=== PATIENT | female | born 1955 | race Caucasian/White ===

== ENCOUNTER → 2017-07-14 | Outpatient (CLI) | payer OTHER | END | disposition home or self-care (01) | LOC: NUC 07:31 | DX: R94.4 Abnormal results of kidney function studies (principal) | CPT/HCPCS: 78707; A9562 ==

== ENCOUNTER 2017-07-21 17:34 | Emergency (ER) | payer OTHER ==
[~2017-07-21] VITALS: Ht 165.1 cm; Wt 79.0 kg
[2017-07-21 18:48] LABS: HEMATOCRIT 33.2 % (36.0-46.0); HEMOGLOBIN 10.6 G/DL (11.9-15.5); MCH 26.6 PG (29.0-34.0); MCHC 31.9 G/DL (30.0-36.0); MCV 83.4 FL (83-99); PLATELET COUNT 442 K/uL (156-360); RBC DIS.WIDTH-SD 42.7 % (39-53); RED BLOOD COUNT 3.98 M/uL (3.80-5.20); WHITE BLOOD COUNT 10.7 K/uL (4.1-10.2)
[2017-07-21 18:58] LABS: INTER. NORMALIZED RATIO 1.1
[2017-07-21 19:01] LABS: MAGNESIUM 1.9 mg/dL (1.3-2.7); PTT 33.4 SEC (25-37)
[2017-07-21 20:06] LABS: THYROTROPIN (TSH) 2.8 MIU/L (0.4-5.5)
[2017-07-21 20:16] LABS: APPEARANCE CLOUDY ((CLEAR)); BILIRUBIN NEGATIVE; BLOOD SMALL; COLOR YELLOW ((YELLOW)); GLUCOSE (STRIP) NEGATIVE; KETONES NEGATIVE; LEUKOCYTES LARGE; NITRITE NEGATIVE; PROTEIN (STRIP) 30; UROBILINOGEN 0.2 MG/DL (0.2-1.0)
[2017-07-21 20:35] LABS: RED BLOOD CELLS 0-5 /HPF (0-5); WHITE BLOOD CELLS TNTC /HPF (0-5)
[2017-07-21 20:36] LABS: BACTERIA 2+ /HPF; EPITHELIAL CELLS 2+ /HPF; MUCUS TRACE /LPF
[2017-07-21 20:59] VITALS: BP 128/85
== END 2017-07-21 21:01 | disposition home or self-care (01) ==
LOC: EME 17:34
PROVIDERS: Physician Assistant
DX: R79.89 Other specified abnormal findings of blood chemistry (principal); R00.0 Tachycardia, unspecified; M79.89 Other specified soft tissue disorders; R06.02 Shortness of breath; I10 Essential (primary) hypertension; K21.9 Gastro-esophageal reflux disease without esophagitis; Z87.891 Personal history of nicotine dependence
CPT/HCPCS: 71275; 81003; 83735; 84443; 85027; 85610; 85730; 93005; 93970; 99281; 99284; J7030

== ENCOUNTER 2017-08-20 22:07 | Inpatient (IN) | payer OTHER ==
[~2017-08-20] VITALS: Ht 165.1 cm; Wt 86.3 kg
[~2017-08-20 22:07] MED LIST: ADULT ASPIRIN R81 MG PO; AMOX TR-K CLV1 EAC4 PO; HYZAAR 100-11 TABLET PO; METFORMIN HCL1000 M3 PO; MYCOSTATIN15 GM PO; PROTONIX40 MG PO; TEMOVATE 0.05%30 GM TP; YUVAFEM10 MCG VG
[2017-08-21] MEDS ORDERED: METOPROLOL SUCC50 MG PO (05:50)
[2017-08-21 05:51] VITALS: BP 112/67
[2017-08-21] MEDS ORDERED: DOCUSATE SODIU100 MG PO (10:48)
[2017-08-21] MEDS ORDERED: ENDOCET 5-3251 EACH PO (10:48)
[2017-08-21 18:37] VITALS: BP 102/59
[2017-08-21 19:07] VITALS: BP 107/61
[2017-08-21 23:09] VITALS: BP 98/56
[2017-08-21 23:30] VITALS: BP 98/56
[2017-08-22] VITALS (10 sets, daily range): BP systolic 70–104; BP diastolic 42–60
[2017-08-22 07:23] LABS: HEMATOCRIT 25.2 % (36.0-46.0); MCHC 31.7 G/DL (30.0-36.0); MCV 81.8 FL (83-99); RBC DIS.WIDTH-SD 41.8 % (39-53); WHITE BLOOD COUNT 9.4 K/uL (4.1-10.2)
[2017-08-22 07:24] LABS: PLATELET COUNT 340 K/uL (156-360); RED BLOOD COUNT 3.08 M/uL (3.80-5.20)
[2017-08-22 08:08] LABS: CHLORIDE 101 MEQ/L (99-109); CREATININE 0.9 MG/DL (0.6-1.3); GFR ESTIMATE (CALCULATED) > 59 mL/min/; GLUCOSE 139 mg/dL (70-99); POTASSIUM 3.7 MEQ/L (3.7-5.4); SODIUM 139 MEQ/L (136-147); UREA NITROGEN (BUN) 11 mg/dL (9-23)
[2017-08-23] VITALS (25 sets, daily range): BP systolic 74–106; BP diastolic 43–68
[2017-08-23 03:34] LABS: HEMATOCRIT 26.4 % (36.0-46.0); HEMOGLOBIN 8.6 G/DL (11.9-15.5); MCHC 32.6 G/DL (30.0-36.0); PLATELET COUNT 302 K/uL (156-360); RBC DIS.WIDTH-CV 14.3 % (11.8-14.6); RBC DIS.WIDTH-SD 43.5 % (39-53); RED BLOOD COUNT 3.18 M/uL (3.80-5.20); WHITE BLOOD COUNT 13.9 K/uL (4.1-10.2)
[2017-08-23 03:42] LABS: ALBUMIN 2.9 g/dL (3.2-4.8)
[2017-08-23 03:43] LABS: CHLORIDE 99 mEq/L (99-109); POTASSIUM 4.1 mEq/L (3.7-5.4); SODIUM 133 mEq/L (136-147)
[2017-08-23 03:45] LABS: GLUCOSE 112 mg/dL (70-99); TOTAL PROTEIN 5.7 g/dL (6.4-8.3)
[2017-08-23 03:47] LABS: TOTAL BILIRUBIN 2.3 mg/dL (0.0-1.0)
[2017-08-23 03:48] LABS: ALKALINE PHOSPHATASE 67 IU/L (3-129)
[2017-08-23 03:49] LABS: CREATININE 1.2 mg/dL (0.6-1.3); GFR ESTIMATE (CALCULATED) 49 mL/min/
[2017-08-23 03:50] LABS: AST (GOT) 15 IU/L (2-34); UREA NITROGEN (BUN) 11 mg/dL (9-23)
[2017-08-23 03:52] LABS: ALT (GPT) 6 IU/L (3-49)
[2017-08-23 05:05] LABS: APPEARANCE SL.HAZY ((CLEAR)); BILIRUBIN NEGATIVE; BLOOD NEGATIVE; COLOR YELLOW ((YELLOW)); GLUCOSE (STRIP) NEGATIVE; KETONES NEGATIVE; LEUKOCYTES TRACE; NITRITE NEGATIVE; PROTEIN (STRIP) NEGATIVE; SPECIFIC GRAVITY 1.008 (1.000-1.030); UROBILINOGEN 0.2 MG/DL (0.2-1.0)
[2017-08-23 05:08] LABS: BACTERIA RARE /HPF; EPITHELIAL CELLS RARE /HPF; MUCUS TRACE /LPF
[2017-08-23 08:46] LABS: BASOPHIL (%) 0.3 % (0-1); EOSINOPHIL (%) 1.2 % (0-5); EOSINOPHIL COUNT 0.2 K/uL (0-0.3); HEMATOCRIT 27.5 % (36.0-46.0); HEMOGLOBIN 8.8 G/DL (11.9-15.5); IMMATURE GRANULOCYTE (%) 0.6 % (0.0-0.7); LYMPHOCYTE (%) 7.4 % (15-42); LYMPHOCYTE COUNT 0.9 K/uL (1.0-2.8); MCH 26.9 PG (29.0-34.0); MCV 84.1 FL (83-99); MONOCYTE (%) 5.4 % (3-12); MONOCYTE COUNT 0.7 K/uL (0-0.8); NEUTROPHIL (%) 85.1 % (45-76); NEUTROPHIL COUNT 10.5 K/uL (1.8-6.4); PLATELET COUNT 283 K/uL (156-360); RBC DIS.WIDTH-CV 14.5 % (11.8-14.6); RBC DIS.WIDTH-SD 44.6 % (39-53); RED BLOOD COUNT 3.27 M/uL (3.80-5.20); WHITE BLOOD COUNT 12.4 K/uL (4.1-10.2)
[2017-08-23 09:21] LABS: CHLORIDE 102 MEQ/L (99-109); GFR ESTIMATE (CALCULATED) > 59 mL/min/; GLUCOSE 126 mg/dL (70-99); POTASSIUM 3.5 MEQ/L (3.7-5.4); SODIUM 135 MEQ/L (136-147); UREA NITROGEN (BUN) 11 mg/dL (9-23)
[2017-08-23 20:46] LABS: HEMATOCRIT 26.2 % (36.0-46.0); HEMOGLOBIN 8.5 G/DL (11.9-15.5); MCH 26.9 PG (29.0-34.0); MCHC 32.4 G/DL (30.0-36.0); MCV 82.9 FL (83-99); PLATELET COUNT 304 K/uL (156-360); RBC DIS.WIDTH-CV 14.5 % (11.8-14.6); RBC DIS.WIDTH-SD 44.1 % (39-53); RED BLOOD COUNT 3.16 M/uL (3.80-5.20); WHITE BLOOD COUNT 12.4 K/uL (4.1-10.2)
[2017-08-24] VITALS (32 sets, daily range): BP systolic 72–115; BP diastolic 39–90
[2017-08-24 01:17] LABS: BASOPHIL (%) 0.2 % (0-1); EOSINOPHIL (%) 1.5 % (0-5); EOSINOPHIL COUNT 0.2 K/uL (0-0.3); HEMATOCRIT 26.1 % (36.0-46.0); HEMOGLOBIN 8.5 G/DL (11.9-15.5); IMMATURE GRANULOCYTE (%) 0.7 % (0.0-0.7); LYMPHOCYTE (%) 9.9 % (15-42); LYMPHOCYTE COUNT 1.2 K/uL (1.0-2.8); MCH 27.2 PG (29.0-34.0); MCHC 32.6 G/DL (30.0-36.0); MCV 83.4 FL (83-99); MONOCYTE (%) 4.4 % (3-12); MONOCYTE COUNT 0.5 K/uL (0-0.8); NEUTROPHIL (%) 83.3 % (45-76); NEUTROPHIL COUNT 10.1 K/uL (1.8-6.4); PLATELET COUNT 312 K/uL (156-360); RBC DIS.WIDTH-CV 14.5 % (11.8-14.6); RBC DIS.WIDTH-SD 44.3 % (39-53); RED BLOOD COUNT 3.13 M/uL (3.80-5.20); WHITE BLOOD COUNT 12.2 K/uL (4.1-10.2)
[2017-08-24 01:27] LABS: CHLORIDE 102 mEq/L (99-109); POTASSIUM 3.5 mEq/L (3.7-5.4); SODIUM 135 mEq/L (136-147)
[2017-08-24 01:29] LABS: GLUCOSE 101 mg/dL (70-99)
[2017-08-24 01:33] LABS: GFR ESTIMATE (CALCULATED) > 59 mL/min/; PHOSPHORUS 2.9 mg/dL (2.5-4.9)
[2017-08-24 01:34] LABS: UREA NITROGEN (BUN) 12 mg/dL (9-23)
[2017-08-24 01:40] LABS: MAGNESIUM 0.9 mg/dL (1.3-2.7)
[2017-08-24 08:29] LABS: HEMATOCRIT 26.3 % (36.0-46.0); HEMOGLOBIN 8.3 G/DL (11.9-15.5); MCH 26.7 PG (29.0-34.0); MCHC 31.6 G/DL (30.0-36.0); MCV 84.6 FL (83-99); PLATELET COUNT 306 K/uL (156-360); RBC DIS.WIDTH-CV 14.6 % (11.8-14.6); RBC DIS.WIDTH-SD 45.3 % (39-53); RED BLOOD COUNT 3.11 M/uL (3.80-5.20); WHITE BLOOD COUNT 11.7 K/uL (4.1-10.2)
[2017-08-24 08:51] LABS: CHLORIDE 103 MEQ/L (99-109); CREATININE 0.9 MG/DL (0.6-1.3); GFR ESTIMATE (CALCULATED) > 59 mL/min/; GLUCOSE 99 mg/dL (70-99); MAGNESIUM 1.9 mg/dl (1.3-2.7); POTASSIUM 3.5 MEQ/L (3.7-5.4); SODIUM 134 MEQ/L (136-147); UREA NITROGEN (BUN) 10 mg/dL (9-23)
[2017-08-24 14:28] LABS: BASOPHIL (%) 0.2 % (0-1); EOSINOPHIL (%) 1.8 % (0-5); EOSINOPHIL COUNT 0.2 K/uL (0-0.3); HEMATOCRIT 26.4 % (36.0-46.0); HEMOGLOBIN 8.3 G/DL (11.9-15.5); IMMATURE GRANULOCYTE (%) 0.6 % (0.0-0.7); LYMPHOCYTE (%) 9.9 % (15-42); LYMPHOCYTE COUNT 0.9 K/uL (1.0-2.8); MCH 26.2 PG (29.0-34.0); MCHC 31.4 G/DL (30.0-36.0); MCV 83.3 FL (83-99); MONOCYTE COUNT 0.5 K/uL (0-0.8); NEUTROPHIL (%) 82.5 % (45-76); NEUTROPHIL COUNT 7.7 K/uL (1.8-6.4); PLATELET COUNT 298 K/uL (156-360); RBC DIS.WIDTH-CV 14.6 % (11.8-14.6); RBC DIS.WIDTH-SD 44.4 % (39-53); RED BLOOD COUNT 3.17 M/uL (3.80-5.20); WHITE BLOOD COUNT 9.3 K/uL (4.1-10.2)
[2017-08-24 14:51] LABS: CHLORIDE 103 MEQ/L (99-109); POTASSIUM 2.9 MEQ/L (3.7-5.4); SODIUM 135 MEQ/L (136-147)
[2017-08-24 14:58] LABS: CREATININE 0.9 MG/DL (0.6-1.3); GFR ESTIMATE (CALCULATED) > 59 mL/min/; GLUCOSE 126 mg/dL (70-99); UREA NITROGEN (BUN) 11 mg/dL (9-23)
[2017-08-24 15:00] LABS: HIGH-SENS C-REACTIVE PROTEIN > 8.00 MG/DL (0.02-0.20)
[2017-08-25] VITALS (33 sets, daily range): BP systolic 73–121; BP diastolic 45–85
[2017-08-25 06:37] LABS: BASOPHIL (%) 0.4 % (0-1); EOSINOPHIL (%) 5.1 % (0-5); EOSINOPHIL COUNT 0.6 K/uL (0-0.3); HEMATOCRIT 25.5 % (36.0-46.0); HEMOGLOBIN 8.1 G/DL (11.9-15.5); IMMATURE GRANULOCYTE (%) 0.4 % (0.0-0.7); LYMPHOCYTE (%) 12.3 % (15-42); LYMPHOCYTE COUNT 1.4 K/uL (1.0-2.8); MCH 26.9 PG (29.0-34.0); MCHC 31.8 G/DL (30.0-36.0); MCV 84.7 FL (83-99); MONOCYTE (%) 7.6 % (3-12); MONOCYTE COUNT 0.9 K/uL (0-0.8); NEUTROPHIL (%) 74.2 % (45-76); NEUTROPHIL COUNT 8.3 K/uL (1.8-6.4); RBC DIS.WIDTH-CV 14.8 % (11.8-14.6); RBC DIS.WIDTH-SD 45.8 % (39-53); RED BLOOD COUNT 3.01 M/uL (3.80-5.20); WHITE BLOOD COUNT 11.2 K/uL (4.1-10.2)
[2017-08-25 06:39] LABS: PLATELET COUNT 399 K/uL (156-360)
[2017-08-25 07:10] LABS: ALKALINE PHOSPHATASE 96 IU/L (3-129); ALT (GPT) 6 IU/L (3-49); AST (GOT) 10 IU/L (2-34); CHLORIDE 107 MEQ/L (99-109); CREATININE 0.9 MG/DL (0.6-1.3); GFR ESTIMATE (CALCULATED) > 59 mL/min/; GLUCOSE 109 mg/dL (70-99); MAGNESIUM 1.8 mg/dl (1.3-2.7); PHOSPHORUS 2.8 mg/dL (2.5-4.9); SODIUM 139 MEQ/L (136-147); TOTAL BILIRUBIN 0.7 MG/DL (0.0-1.0); TOTAL PROTEIN 4.3 G/DL (6.4-8.3); UREA NITROGEN (BUN) 8 mg/dL (9-23)
[2017-08-25 07:12] LABS: POTASSIUM 4.2 MEQ/L (3.7-5.4)
[2017-08-25 08:08] LABS: HIGH-SENS C-REACTIVE PROTEIN > 8.00 MG/DL (0.02-0.20)
[2017-08-25 10:41] LABS: INTER. NORMALIZED RATIO 1.4
[2017-08-25 10:43] LABS: PTT 35.9 SEC (25-37)
[2017-08-25 11:09] LABS: THYROTROPIN (TSH) 1.4 MIU/L (0.4-5.5)
[2017-08-26] VITALS (23 sets, daily range): BP systolic 94–145; BP diastolic 64–91
[2017-08-26 07:36] LABS: BASOPHIL (%) 0 % (0-1); EOSINOPHIL (%) 0 % (0-5); HEMATOCRIT 27.1 % (36.0-46.0); HEMOGLOBIN 8.6 G/DL (11.9-15.5); IMMATURE GRANULOCYTE (%) 0.7 % (0.0-0.7); LYMPHOCYTE (%) 10.7 % (15-42); LYMPHOCYTE COUNT 0.7 K/uL (1.0-2.8); MCH 26.5 PG (29.0-34.0); MCHC 31.7 G/DL (30.0-36.0); MCV 83.6 FL (83-99); MONOCYTE (%) 5.3 % (3-12); MONOCYTE COUNT 0.3 K/uL (0-0.8); NEUTROPHIL (%) 83.3 % (45-76); NEUTROPHIL COUNT 5.1 K/uL (1.8-6.4); PLATELET COUNT 331 K/uL (156-360); RBC DIS.WIDTH-CV 14.4 % (11.8-14.6); RBC DIS.WIDTH-SD 44.2 % (39-53); RED BLOOD COUNT 3.24 M/uL (3.80-5.20); WHITE BLOOD COUNT 6.1 K/uL (4.1-10.2)
[2017-08-26 07:59] LABS: ALBUMIN 2.3 G/DL (3.2-4.8); ALKALINE PHOSPHATASE 100 IU/L (3-129); ALT (GPT) 6 IU/L (3-49); AST (GOT) 10 IU/L (2-34); CHLORIDE 105 MEQ/L (99-109); CREATININE 0.9 MG/DL (0.6-1.3); GFR ESTIMATE (CALCULATED) > 59 mL/min/; MAGNESIUM 1.6 mg/dl (1.3-2.7); PHOSPHORUS 3.3 mg/dL (2.5-4.9); POTASSIUM 3.7 MEQ/L (3.7-5.4); SODIUM 139 MEQ/L (136-147); TOTAL PROTEIN 4.8 G/DL (6.4-8.3); UREA NITROGEN (BUN) 11 mg/dL (9-23); VANCOMYCIN, TROUGH 24.2 MCG/ML (10-20)
[2017-08-26 08:05] LABS: GLUCOSE 169 mg/dL (70-99); TOTAL BILIRUBIN 0.5 MG/DL (0.0-1.0)
[2017-08-27] VITALS (16 sets, daily range): BP systolic 111–142; BP diastolic 62–80
[2017-08-27 07:19] LABS: BASOPHIL (%) 0 % (0-1); EOSINOPHIL (%) 0 % (0-5); HEMATOCRIT 27.2 % (36.0-46.0); HEMOGLOBIN 8.7 G/DL (11.9-15.5); IMMATURE GRANULOCYTE (%) 1.4 % (0.0-0.7); LYMPHOCYTE (%) 11.7 % (15-42); MCH 26.1 PG (29.0-34.0); MCV 81.7 FL (83-99); MONOCYTE (%) 4.5 % (3-12); MONOCYTE COUNT 0.4 K/uL (0-0.8); NEUTROPHIL (%) 82.4 % (45-76); NEUTROPHIL COUNT 6.9 K/uL (1.8-6.4); PLATELET COUNT 386 K/uL (156-360); RBC DIS.WIDTH-CV 14.3 % (11.8-14.6); RBC DIS.WIDTH-SD 42.5 % (39-53); RED BLOOD COUNT 3.33 M/uL (3.80-5.20); WHITE BLOOD COUNT 8.3 K/uL (4.1-10.2)
[2017-08-27 07:59] LABS: ALBUMIN 2.6 G/DL (3.2-4.8); ALKALINE PHOSPHATASE 91 IU/L (3-129); ALT (GPT) 6 IU/L (3-49); AST (GOT) 10 IU/L (2-34); CHLORIDE 106 MEQ/L (99-109); GFR ESTIMATE (CALCULATED) > 59 mL/min/; GLUCOSE 156 mg/dL (70-99); MAGNESIUM 1.4 mg/dl (1.3-2.7); PHOSPHORUS 3.8 mg/dL (2.5-4.9); SODIUM 144 MEQ/L (136-147); TOTAL BILIRUBIN 0.5 MG/DL (0.0-1.0); TOTAL PROTEIN 5.1 G/DL (6.4-8.3); UREA NITROGEN (BUN) 18 mg/dL (9-23)
[2017-08-27 08:03] LABS: POTASSIUM 2.9 MEQ/L (3.7-5.4)
[2017-08-27 11:27] LABS: HIGH-SENS C-REACTIVE PROTEIN 5.36 MG/DL (0.02-0.20)
[2017-08-28 00:29] VITALS: BP 121/64
[2017-08-28 03:14] LABS: HEMATOCRIT 28.4 % (36.0-46.0); HEMOGLOBIN 9.3 G/DL (11.9-15.5); MCHC 32.7 G/DL (30.0-36.0); MCV 82.3 FL (83-99); PLATELET COUNT 457 K/uL (156-360); RBC DIS.WIDTH-CV 14.4 % (11.8-14.6); RBC DIS.WIDTH-SD 43.1 % (39-53); RED BLOOD COUNT 3.45 M/uL (3.80-5.20); WHITE BLOOD COUNT 11.1 K/uL (4.1-10.2)
[2017-08-28 03:27] LABS: CHLORIDE 106 mEq/L (99-109)
[2017-08-28 03:28] LABS: SODIUM 143 mEq/L (136-147)
[2017-08-28 03:30] LABS: GLUCOSE 165 mg/dL (70-99); TOTAL PROTEIN 5.1 g/dL (6.4-8.3)
[2017-08-28 03:33] LABS: PHOSPHORUS 3.1 mg/dL (2.5-4.9)
[2017-08-28 03:34] LABS: GFR ESTIMATE (CALCULATED) > 59 mL/min/
[2017-08-28 03:35] LABS: AST (GOT) 11 IU/L (2-34); UREA NITROGEN (BUN) 22 mg/dL (9-23)
[2017-08-28 03:37] LABS: ALT (GPT) 10 IU/L (3-49)
[2017-08-28 03:42] LABS: ALKALINE PHOSPHATASE 102 IU/L (3-129); MAGNESIUM 1.8 mg/dL (1.3-2.7); POTASSIUM 3.6 mEq/L (3.7-5.4); TOTAL BILIRUBIN 0.5 mg/dL (0.0-1.0)
[2017-08-28 03:52] LABS: HIGH-SENS C-REACTIVE PROTEIN 2.78 MG/DL (0.02-0.20)
[2017-08-28 04:01] VITALS: BP 139/64
[2017-08-28 05:08] LABS: ABS NEUTROPHIL COUNT 9.9; ANISOCYTOSIS 1+; BAND NEUTROPHILS 1.7 % (0-8.0); EOSINOPHIL ABS CT 0; HYPOCHROMASIA 1+; LYMPHOCYTES 6.1 % (15.0-45.0); METAMYELOCYTES 1.7 %; MONOCYTES 1.8 % (0-9.0); MYELOCYTES 0.9 %; OVALOCYTES 1+; PLAT.SUFFICIENCY INCREASED; SEG.NEUTROPHILS 87.8 % (46.0-76.0)
[2017-08-28 06:50] VITALS: BP 137/68
[2017-08-28 15:15] VITALS: BP 138/76
[2017-08-28 23:50] VITALS: BP 125/73
[2017-08-29 06:12] LABS: HEMATOCRIT 29.4 % (36.0-46.0); HEMOGLOBIN 9.1 G/DL (11.9-15.5); MCH 26.1 PG (29.0-34.0); MCV 84.5 FL (83-99); PLATELET COUNT 568 K/uL (156-360); RBC DIS.WIDTH-CV 14.5 % (11.8-14.6); RBC DIS.WIDTH-SD 44.5 % (39-53); RED BLOOD COUNT 3.48 M/uL (3.80-5.20); WHITE BLOOD COUNT 13.1 K/uL (4.1-10.2)
[2017-08-29 06:38] LABS: ALBUMIN 2.7 G/DL (3.2-4.8); ALKALINE PHOSPHATASE 83 IU/L (3-129); ALT (GPT) 11 IU/L (3-49); AST (GOT) 12 IU/L (2-34); CHLORIDE 105 MEQ/L (99-109); GFR ESTIMATE (CALCULATED) > 59 mL/min/; POTASSIUM 3.1 MEQ/L (3.7-5.4); SODIUM 142 MEQ/L (136-147); TOTAL BILIRUBIN 0.6 MG/DL (0.0-1.0); TOTAL PROTEIN 5.1 G/DL (6.4-8.3); UREA NITROGEN (BUN) 21 mg/dL (9-23)
[2017-08-29 06:39] LABS: GLUCOSE 83 mg/dL (70-99); MAGNESIUM 1.7 mg/dl (1.3-2.7)
[2017-08-29 07:00] LABS: ABS NEUTROPHIL COUNT 10.5; ANISOCYTOSIS 1+; ATYPICAL LYMPHOCYTE 0.9 %; BAND NEUTROPHILS 1.7 % (0-8.0); EOSINOPHIL ABS CT 0; LYMPHOCYTES 12.8 % (15.0-45.0); MICROCYTOSIS 1+; PLAT.SUFFICIENCY INCREASED; SEG.NEUTROPHILS 78.6 % (46.0-76.0)
[2017-08-29 07:15] VITALS: BP 160/77
== END 2017-08-29 11:47 | disposition home or self-care (01) | DRG 659 ==
LOC: ENRESERV 22:07 → 2SOUTH 08-21 05:29 → ENRESERV 08-21 13:49 → 2SOUTH 08-21 14:15 → ENRESERV 08-21 18:02 → 5EAST 08-21 18:23 → ENRESERV 08-23 03:27 → 4WEST 08-23 04:05 → ENRESERV 08-27 → 4WEST 08-27 18:12 → ENRESERV 08-27 18:14 → 5EAST 08-27 20:09
PROVIDERS: Hospitalist; Internal Medicine; Specialist; Urology
PROC: 0TT00ZZ Resection of Right Kidney, Open Approach (ICD-10-PCS; principal; 2017-08-21)
PROC: 05HM33Z Insertion of Infusion Device into Right Internal Jugular Vein, Percutaneous Approach (ICD-10-PCS; 2017-08-23)
PROC: 02HV33Z Insertion of Infusion Device into Superior Vena Cava, Percutaneous Approach (ICD-10-PCS; 2017-08-25)
DX: N13.2 Hydronephrosis with renal and ureteral calculous obstruction (principal); A41.9 Sepsis, unspecified organism; D62 Acute posthemorrhagic anemia; E86.0 Dehydration; T81.19XA Other postprocedural shock, initial encounter; K91.871 Postprocedural hematoma of a digestive system organ or structure following other procedure; E87.6 Hypokalemia; R60.0 Localized edema; I10 Essential (primary) hypertension; S30.1XXA Contusion of abdominal wall, initial encounter; I95.81 Postprocedural hypotension; N26.1 Atrophy of kidney (terminal); K59.00 Constipation, unspecified; I31.3 Pericardial effusion (noninflammatory); Z87.442 Personal history of urinary calculi; D50.0 Iron deficiency anemia secondary to blood loss (chronic); K21.9 Gastro-esophageal reflux disease without esophagitis
CPT/HCPCS: 71045; 74176; 74177; 80048; 80048 91; 80053; 80202; 81003; 82533 91; 82948; 83605; 83735; 84100; 84145 90; 84443; 85025; 85025 91; 85027; 85610; 85730; 86141; 86850; 86900; 86901; 86920; 87040; 87086; 87641; 88307; 93970; 94799; C1751; C9113; J0131; J0690; J0692; J0696; J1100; J1170; J1650; J1720; J1815; J1885; J1940; J2250; J2370; J2405; J2543; J2710; J3370; J3475; J3480; J7030; J7050; J7120; J7643; P9016; P9045; Q0175